=== PATIENT | male | born 1990 | race Caucasian/White ===

== ENCOUNTER 2016-03-04 22:39 | Emergency (ER) | payer MEDICAID ==
[~2016-03-04] VITALS: Ht 172.7 cm; Wt 74.8 kg
[2016-03-04] MEDS ORDERED: LIDOCAINE 1% HCL (LOCAL ANESTH.) INJ 20ML MDV IJ ONE (23:15)
[2016-03-04] MEDS ORDERED: NEOMYCIN-BACITRACIN-POLYM UNITDOSE PKG TOP OINT TOP ONE (23:15)
[2016-03-04 23:44] VITALS: BP 139/89
[2016-03-05] MEDS ORDERED: TETANUS-DIPTH-ACEL PERTUSSIS 0.5ML SYRG IM ONE (00:30)
== END 2016-03-05 00:43 | disposition home or self-care (01) ==
LOC: ER 22:44
DX: S61.011A Laceration without foreign body of right thumb without damage to nail, initial encounter (principal); Z23 Encounter for immunization; W45.8XXA Other foreign body or object entering through skin, initial encounter; Y93.89 Activity, other specified; Y99.0 Civilian activity done for income or pay; Y92.69 Other specified industrial and construction area as the place of occurrence of the external cause
CPT/HCPCS: 12002; 90471; 90715; 99283; J2001

== ENCOUNTER 2024-08-05 10:49 | Emergency (ER) | payer MEDICAID, OTHER ==
[~2024-08-05] VITALS: Ht 175.3 cm; Wt 88.8 kg
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
--- NOTE | 2024-08-05 11:45 | DVH ---
CLINICAL INDICATION: L WRIST PAIN TECHNIQUE: AP and lateral views of the left wrist were performed. XY L WRIST 2 VIEW XRAY Comparison: None FINDINGS/IMPRESSION: 1. Left distal radial transverse fracture with mild cortical displacement dorsally on the lateral emily m. 2. Mildly displaced fracture of the base of the left ulnar styloid. 3. No fractures are identified about the carpal bones or metacarpal bones.
[2024-08-05] MEDS: traMADol HCL 50 MG TAB PO ONE (12:21)
[2024-08-05 12:30] VITALS: BP 136/88; PULSE 94; RESP 18; TEMP 98.8; O2SAT 99
[2024-08-05] MEDS: ACETAMINOPHEN 325 MG TAB PO ONE (12:32)
== END 2024-08-05 13:09 | disposition home or self-care (01) ==
LOC: ER 10:49
DX: S52.592A Other fractures of lower end of left radius, initial encounter for closed fracture (principal); S52.612A Displaced fracture of left ulna styloid process, initial encounter for closed fracture; Z88.2 Allergy status to sulfonamides; V89.2XXA Person injured in unspecified motor-vehicle accident, traffic, initial encounter; Y93.I9 Activity, other involving external motion; Y92.488 Other paved roadways as the place of occurrence of the external cause; Y99.8 Other external cause status
CPT/HCPCS: 29125; 73100